=== PATIENT | male | born 1960 | race African-American/Black ===

== ENCOUNTER 2018-01-09 23:37 | Inpatient (IN) | payer OTHER ==
--- NOTE | 2018-01-10 00:18 | HP ---
COWS - Scale Resting Pulse: 0= [place] 80 or Below Sweatin= No chills or Flushing Restless Observation: 3= Extraneous Movement Pupil Size: 0= Normal to Room Light Bone or Joint Aches: 4=Acute Joint/Muscle Pain Runny Nose/ Eye Tearin= Runny Nose/Eyes GI Upset > 30mins: 2= Nausea/Diarrhea Tremor Observation: 1= Tremor [place], Not Seen Yawning Observation: 0= None Anxiety or Irritability: 2=Irritable/Anxious Goose Flesh Skin: 0=Smooth Skin COWS Score: 14 CIWA Score - CIWA Score Nausea/Vomitin-No Nausea/No Vomiting Muscle Tremors: 3 Anxiety: 4-Mod. Anxious/Guarded Agitation: 4-Moderately Restless Paroxysmal Sweats: No Perspiration Orientation: 1-Uncertain about Date Tacttile Disturbances: 0-None Auditory Disturbances: 0-None Visual Disturbances: 0-None Headache: 2-Mild CIWA-Ar Total Score: 14 Admission ROS S - HPI Chief Complaint: c/o withdrawal sx's. seeking detox for alcohol and heroin dependence Allergies/Adverse Reactions: Allergies Allergy/AdvReac Type Severity Reaction Status Date / Time No Known Allergies Allergy Verified 01/10/18 00:00 History of Present Illness: 57 Y.O. MALE WITH HX/O ALCOHOLISM AND HEROIN DEPENDENCE HERE FOR DETOX. CLIENT REPORTS THIS HIS FIRST SUBSTANCE ABUSE TXMENT. DENIES ANY SIGNIFICANT PERIOD OF CLEAN TIME. SELF REFERRED. DENIES HX/O SEIZURE, A/V HALLUCINATIONS, SI/HI. REPORTS HX/O 3 DRUG OVERDOSES LAST BEING A MONTH AGO. REPROTS HX/O HTN BUT NOT SURE WHAT MEDICATION DOSE IS 25MG AND HE BELIEVES IT FOR "WATER". HAS NOT TAKEN THE MEDICATION FOR A WHILE Exam Limitations: No Limitations - Ebola screening Have you traveled outside of the country in the last 21 days: No Have you had contact with anyone from an Ebola affected area: No Have you been sick,other than usual withdrawal symptoms: No Do you have a fever: No - Review of Systems Constitutional: Chills, Malaise, Night Sweats, Changes in sleep EENT: reports: Nose Congestion (SUFFERES FROM CHRONIC SINUSITIS), Dental Problems (MISSING TEETH), Other (HALITOSIS) Respiratory: reports: No Symptoms reported Cardiac: reports: No Symptoms Reported GI: reports: Diarrhea : reports: No Symptoms Reported Musculoskeletal: reports: Back Pain Integumentary: reports: No Symptoms Reported Neuro: reports: No Symptoms reported Endocrine: reports: No Symptoms Reported Hematology: reports: No Symptoms Reported Other Systems: Reviewed and Negative Patient History - Patient Medical History Hx Anemia: No Hx Asthma: No Hx Chronic Obstructive Pulmonary Disease (COPD): Yes Hx Cancer: No Hx Cardiac Disorders: No Hx Congestive Heart Failure: No Hx Hypertension: Yes Hx Hypercholesterolemia: No Hx Pacemaker: No HX Cerebrovascular Accident: No Hx Seizures: No Hx Dementia: No Hx Diabetes: No Hx Gastrointestinal Disorders: No Hx Liver Disease: No Hx Genitourinary Disorders: No Hx Sexually Transmitted Disorders: No Hx Renal Disease (ESRD): No Hx Thyroid Disease: No Hx Human Immunodeficiency Virus (HIV): No Hx Hepatitis C: No Hx Depression: No Hx Suicide Attempt: No Hx Bipolar Disorder: No Hx Schizophrenia: No Other Medical History: CHRONIC SINUSITIS - Patient Surgical History Past Surgical History: Yes Hx Orthopedic Surgery: Yes (R HAND) Anesthesia Reaction: No - PPD History Previous Implant?: Yes Documented Results: Negative w/o proof Implanted On Prior [facility] Admission?: No PPD to be Administered?: Yes - Smoking Cessation Smoking history: Current every day smoker Have you smoked in the past 12 months: Yes Aproximately how many cigarettes per day: 10 Cigars Per Day: 0 Hx Chewing Tobacco Use: No Initiated information on smoking cessation: Yes 'Breaking Loose' booklet given: 01/10/18 - Substance & Tx. History Hx Alcohol Use: Yes Hx Substance Use: Yes Substance Use Type: Alcohol, Heroin Hx Substance Use Treatment: No - Substances Abused HEROINE Route: Inhalation Frequency: Daily Amount used: 6 BAGS Age of first use: 31 Date of Last Use: 01/09/18 VODKA/BEER Route: Oral Frequency: Daily Amount used: 1PINT/6-CANS 16OZ Age of first use: 15 Date of Last Use: 01/09/18 CCOCAINE Route: Smoking Frequency: Daily Amount used: "ALOT" Age of first use: 19 Date of Last Use: 01/08/18 Family Disease History - Family Disease History Family History: Denies Admission Physical Exam BHS - Physical General Appearance: Yes: Appropriately Dressed, Alcohol on Breath, Tremorous ( FELT), Anxious, Other (HALITOSIS) HEENTM: Yes: EOMI, Normal ENT Inspection, Normocephalic, Normal Voice, LESLIE, Pharynx Normal, Nasal Congestion (CHRONIC SINUSITIS), Other (MISSING TEETH) Respiratory: Yes: Chest Non-Tender, Lungs Clear, Normal Breath Sounds, No Respiratory Distress, No Accessory Muscle Use Neck: Yes: No masses,lesions,Nodules, Supple, Trachea in good position Breast: Yes: Breast Exam Deferred Cardiology: Yes: Regular Rhythm, Regular Rate, S1, S2 Abdominal: Yes: Normal Bowel Sounds, Non Tender, Flat, Soft Genitourinary: Yes: Within Normal Limits Back: Yes: Normal Inspection Musculoskeletal: Yes: full range of Motion, Gait Steady Extremities: Yes: Normal Range of Motion, Non-Tender, Tremors, Swelling (BLE) Neurological: Yes: Alert, Motor Strength 5/5 Integumentary: Yes: Normal Color, Dry, Warm Lymphatic: Yes: Within Normal Limits - Diagnostic (1) HTN (hypertension) Current Visit: Yes Status: Chronic Qualifiers: Hypertension type: essential hypertension Qualified Code(s): I10 - Essential (primary) hypertension (2) COPD (chronic obstructive pulmonary disease) Current Visit: Yes Status: Chronic (3) Nicotine dependence Current Visit: Yes Status: Chronic Qualifiers: Nicotine product type: cigarettes Substance use status: uncomplicated Qualified Code(s): F17.210 - Nicotine dependence, cigarettes, uncomplicated (4) Chronic sinusitis, unspecified Current Visit: Yes Status: Acute (5) Alcohol dependence with uncomplicated withdrawal Current Visit: Yes Status: Acute (6) Opioid dependence with withdrawal Current Visit: Yes Status: Acute Cleared for Admission [facility] - Detox or Rehab [facility] Level of Care: Medically Managed Detox Regimen/Protocol: Methadone/Librium Claeared for Rehab Admission: No [facility] Breath Alcohol Content Breath Alcohol Content: 0.062 Vital Signs - Vital Signs Vital Signs Refused: No Temperature: 98 F Temperature Source: Oral Pulse Rate: 80 Respiratory Rate: 18 Blood Pressure: 156/92 BP Location: Left Arm Blood Pressure Position: Sitting - Height Height: 5 ft 8 in - Weight Weight: 75.296 kg Weight Measurement Method: Standing Scale Body Mass Index (BMI): 25.2 - Bowel Function Bowel Movement: No Urine Drug Screen - Test Device Lot Number: [id number] Expiration Date: 09/20/19 - Control Is Test Valid: Yes - Results Drug Screen Negative: No Urine Drug Screen Results: FIFI-Cocaine, OPI-Opiates, PCP-Phencyclidine
[2018-01-10 00:31] VITALS: BMI 25.2
[2018-01-10] MEDS ORDERED: IBUPROFEN 400 MG TABLET (FP) PO PRN (01:42)
[2018-01-10] MEDS ORDERED: LOPERAMIDE HCL 2 MG CAPSULE PO PRN (01:42)
[2018-01-10] MEDS ORDERED: chlordiazePOXIDE HCL 25 MG CAPSULE PO PRN (01:42)
[2018-01-10] MEDS ORDERED: NICOTINE POLACRILEX 2 MG GUM BC PRN (01:42)
[2018-01-10] MEDS ORDERED: guaiFENesin/D-METHORPHAN HB 10 ML UNIT-DOSE CUPS PO PRN (01:42)
[2018-01-10] MEDS ORDERED: MAGNESIUM HYDROX 2400MG/30ML ORAL SUSPENSION 30 ML CUP PO PRN (01:42)
[2018-01-10] MEDS ORDERED: MAG HYDROX/AL HYDROX/SIMETH 30 ML UNIT-DOSE CUP PO PRN (01:42)
[2018-01-10] MEDS ORDERED: METHADONE HCL 10 MG TABLET (FOR DETOX USE ONLY) PO ONE ×3 (01:42→22:00)
[2018-01-10] MEDS ORDERED: MENTHOL/PHENOL 1 EACH UD MM PRN (01:42)
[2018-01-10] MEDS ORDERED: MAGNESIUM CITRATE 300 ML BOTTLE PO PRN (01:42)
[2018-01-10] MEDS ORDERED: ACETAMINOPHEN 325 MG TABLET (FP) PO PRN (01:42)
[2018-01-10] MEDS: chlordiazePOXIDE HCL 25 MG CAPSULE PO SCH ×4 (05:38→22:11)
[2018-01-10] MEDS: P-EPHED 60MG/TRIPROLIDI 2.5MG TABLET PO PRN (05:44)
[2018-01-10] MEDS: cloNIDine HCL 0.1 MG TABLET PO PRN ×2 (07:18→15:06)
[2018-01-10] MEDS: PRENATAL VITAMINS W/ FOLIC ACID TABLET (FP) PO SCH (10:35)
[2018-01-10] MEDS: amLODIPine BESYLATE 10 MG TABLET (FP) PO SCH (10:37)
[2018-01-10] MEDS: NICOTINE 21 MG/24 HOURS TOPICAL PATCH TD SCH (10:39)
--- NOTE | 2018-01-10 10:40 | CONSULT ---
[facility] Psychiatric Consult - Data Date of interview: 01/10/18 Admission source: [facility] Identifying data: This is 57 years old male, single father of eight, homeless, on SSI, with no psychiatric hospitalization history, with history of Alcohol, Heroin and Cannabis depedndenve, reports Alcohol withdrawal symptoms and seeking for detox. Substance Abuse History: Urine Drug Screen Results: FIFI-Cocaine, OPI-Opiates, PCP-Phencyclidine. Smoking history: Current every day smoker. Have you smoked in the past 12 months: Yes. Aproximately how many cigarettes per day: 10. Cigars Per Day: 0. Hx Chewing Tobacco Use: No. Initiated information on smoking cessation: Yes. 'Breaking Loose' booklet given: 01/10/18. - Substance & Tx. History. Hx Alcohol Use: Yes. Hx Substance Use: Yes. Substance Use Type : Alcohol, Heroin. Hx Substance Use Treatment: No. - Substances Abused. HEROINE. Route: Inhalation. Frequency: Daily. Amount used: 6 BAGS. Age of first use: 31. Date of Last Use: 01/09/18. VODKA/BEER. Route: Oral. Frequency: Daily. Amount used: 1PINT/6-CANS 16OZ. Age of first use: 15. Date of Last Use: 01/09/18. CCOCAINE. Route: Smoking. Frequency: Daily. Amount used: "ALOT". Age of first use: 19. Date of Last Use: 01/08/18 Medical History: COPD, HTN, Psychiatric History: JUICE YUN UNCLEAR PAST PSYCHIATRIC HISTORY WITH NO PSYCHIATRIC HOSPITALIZATIONS BUT WITH HISTORY OF THREE SUICIADAL ATTEMPTS BY od WITH MEDICATIONS, REPORTS NO MEDICATIONS TAKING PRIOR TO THIS ADMISSION, Physical/Sexual Abuse/Trauma History: Denies Additional Comment: Urine Drug Screen Results: FIFI-Cocaine, OPI-Opiates, PCP- Phencyclidine. Observation. Detox Unit Care Protocol Mental Status Exam - Mental Status Exam Alert and Oriented to: Person Cognitive Function: Fair Patient Appearance: Unkempt Mood: Sad Affect: Flat Patient Behavior: Sedated Speech Pattern: Delayed Voice Loudness: Mildly Soft/Quiet Thought Process: Circumstantial Thought Disorder: Being Controlled Hallucinations: Denies Suicidal Ideation: Denies Homicidal Ideation: Denies Insight/Judgement: Fair Sleep: Difficulty falling asleep Appetite: Weight gain Muscle strength/Tone: Mild Hypotonicity Gait/Station: Shuffling Additional Comments: Observation. Detox Unit Care Protocol Psychiatric Findings - Problem List ([place] 1, 2,3) (1) Cocaine abuse Current Visit: Yes Status: Acute (2) PCP (phencyclidine) abuse Current Visit: Yes Status: Acute (3) Alcohol-induced mood disorder Current Visit: Yes Status: Acute (4) Alcohol dependence with uncomplicated withdrawal Current Visit: Yes Status: Acute (5) Opioid dependence with withdrawal Current Visit: Yes Status: Acute (6) Nicotine dependence Current Visit: Yes Status: Chronic Qualifiers: Nicotine product type: cigarettes Substance use status: uncomplicated Qualified Code(s): F17.210 - Nicotine dependence, cigarettes, uncomplicated - Initial Treatment Plan Initial Treatment Plan: Observation. Detox Unit Care Protocol
[2018-01-10] MEDS ORDERED: valACYclovir HCL 500 MG TABLET (FP) PO SCH (10:45)
--- NOTE | 2018-01-10 10:47 | EKG ---
Test Reason : Blood Pressure : / mmHG Vent. Rate : 073 BPM Atrial Rate : 073 BPM P-R Int : 114 ms QRS Dur : 086 ms QT Int : 404 ms P-R-T Axes : 000 000 115 degrees QTc Int : 445 ms NORMAL SINUS RHYTHM POSSIBLE LATERAL INFARCT , AGE UNDETERMINED ABNORMAL ECG NO PREVIOUS ECGS AVAILABLE Confirmed by JANNA MALDONADO MD ([id number]) on 01/10/2018 10:46:42 AM Referred By: Confirmed By:JANNA MALDONADO MD
--- NOTE | 2018-01-10 10:52 | PN ---
S CIWA - CIWA Score Nausea/Vomitin-Mild Nausea/No Vomiting Muscle Tremors: 4-Moderate,w/Arms Extend Anxiety: 3 Agitation: 3 Paroxysmal Sweats: 1-Minimal Palms Moist Orientation: 0-Oriented Tacttile Disturbances: 0-None Auditory Disturbances: 0-None Visual Disturbances: 0-None Headache: 1-Very Mild CIWA-Ar Total Score: 13 BHS COWS - Scale Resting Pulse: 1= [place] 81-100 Sweatin= Chills/Flushing Restless Observation: 1= Difficult to Sit Still Pupil Size: 0= Normal to Room Light Bone or Joint Aches: 2= Severe Diffuse Aches Runny Nose/ Eye Tearin= Nasal Congestion GI Upset > 30mins: 2= Nausea/Diarrhea Tremor Observation of Outstretched Hands: 2= Slight Tremor Visible Yawning Observation: 1= 1-2x During Session Anxiety or Irritability: 2=Irritable/Anxious Goose Flesh Skin: 0=Smooth Skin COWS Score: 13 BHS Progress Note (SOAP) Subjective: joints pain body ache trouble sleep at night irritable restlessness sweat tremor stated has hypertension x "years" taking unknown name medications, not remember last dose of antihypertensants Objective: 01/10/18 10:49 Vital Signs Temperature 97.9 F 01/10/18 09:20 Pulse Rate 84 01/10/18 09:20 Respiratory Rate 18 01/10/18 09:20 Blood Pressure 182/107 01/10/18 09:20 O2 Sat by Pulse Oximetry (%) lab not available at this time Assessment: 01/10/18 10:49 withdrawal sx hypertension Plan: continue detox begin amlodopine patient received tolerated well denies dizziness begin lisinopril 10 mg po bid
[2018-01-10 11:15] LABS: HEMATOCRIT 38.2 % (35.4-49); HEMOGLOBIN 12.4 GM/dL (11.7-16.9); MCH 31.2 pg (25.7-33.7); MCHC 32.6 g/dl (32.0-35.9); MEAN CELL VOLUME 95.7 fl (80-96); MEAN PLT VOLUME 8.6 fl (7.5-11.1); PLATELET COUNT 234 K/MM3 (134-434); RBC 3.99 M/mm3 (4.00-5.60); RDW 13.7 % (11.9-15.9); WHITE BLOOD COUNT 6.1 K/mm3 (4.0-10.0)
[2018-01-10 11:32] LABS: ALBUMIN 3.1 g/dl (3.4-5.0); ALK PHOS 92 U/L (45-117); ANION GAP 5 (8-16); BILIRUBIN,TOTAL 0.5 mg/dL (0.2-1.0); BLOOD UREA NITROGEN 11 mg/dL (7-18); CALCIUM 8.5 mg/dL (8.5-10.1); CHLORIDE 107 mmol/L (98-107); CO2 29 mmol/L (21-32); CREATININE 1.1 mg/dL (0.7-1.3); GLUCOSE,RANDOM 89 mg/dL (74-106); POTASSIUM 4.2 mmol/L (3.5-5.1); SGOT/AST 22 U/L (15-37); SGPT/ALT 23 U/L (12-78); SODIUM 141 mmol/L (136-145); TOT PROT 6.6 g/dl (6.4-8.2)
[2018-01-10] MEDS ORDERED: LISINOPRIL 10 MG TABLET (FP) PO SCH (22:00)
[2018-01-10] MEDS ORDERED: MELATONIN 5 MG TABLETS PO PRN (22:00)
[2018-01-10] MEDS: THIAMINE HCL 100 MG TABLET (FP) PO SCH (22:11)
[2018-01-10] MEDS: LISINOPRIL 10 MG TABLET (FP) PO SCH (22:11)
[2018-01-11] MEDS: cloNIDine HCL 0.1 MG TABLET PO PRN (05:33)
[2018-01-11] MEDS: chlordiazePOXIDE HCL 25 MG CAPSULE PO SCH ×4 (05:33→22:18)
[2018-01-11] MEDS: P-EPHED 60MG/TRIPROLIDI 2.5MG TABLET PO PRN (05:36)
[2018-01-11 09:56] LABS: URINE APPEARANCE CLEAR; URINE BILIRUBIN NEGATIVE (<2.0 mg/dL); URINE COLOR LTYELLOW; URINE GLUCOSE (UA) NEGATIVE (NEGATIVE); URINE KETONE NEGATIVE (NEGATIVE); URINE LEUK ESTERASE NEGATIVE (NEGATIVE); URINE NITRITE NEGATIVE (NEGATIVE); URINE PROTEIN NEGATIVE (NEGATIVE); URINE UROBILINOGEN NEGATIVE mg/dL (0.2-1.0)
[2018-01-11] MEDS ORDERED: METHADONE HCL 10 MG TABLET (FOR DETOX USE ONLY) PO SCH (10:00)
--- NOTE | 2018-01-11 10:02 | PN ---
S CIWA - CIWA Score Nausea/Vomitin-No Nausea/No Vomiting Muscle Tremors: 3 Anxiety: 3 Agitation: 3 Paroxysmal Sweats: 1-Minimal Palms Moist Orientation: 0-Oriented Tacttile Disturbances: 1-Very Mild Itch/Numbness Auditory Disturbances: 0-None Visual Disturbances: 0-None Headache: 1-Very Mild CIWA-Ar Total Score: 12 BHS COWS - Scale Resting Pulse: 0= [place] 80 or Below Sweatin= Chills/Flushing Restless Observation: 1= Difficult to Sit Still Pupil Size: 0= Normal to Room Light Bone or Joint Aches: 2= Severe Diffuse Aches Runny Nose/ Eye Tearin= Nasal Congestion GI Upset > 30mins: 1= Stomach Cramp Tremor Observation of Outstretched Hands: 2= Slight Tremor Visible Yawning Observation: 2= >3x During Session Anxiety or Irritability: 2=Irritable/Anxious Goose Flesh Skin: 0=Smooth Skin COWS Score: 12 S Progress Note (SOAP) Subjective: joints pain body ache sweat tremor irritable low energy Objective: 01/11/18 10:03 Vital Signs Temperature 97.9 F 01/11/18 06:34 Pulse Rate 56 L 01/11/18 07:51 Respiratory Rate 18 01/11/18 07:51 Blood Pressure 135/75 01/11/18 07:51 O2 Sat by Pulse Oximetry (%) Laboratory Last Values WBC 6.1 K/mm3 (4.0-10.0) 01/10/18 07:00 RBC 3.99 M/mm3 (4.00-5.60) L 01/10/18 07:00 Hgb 12.4 GM/dL (11.7-16.9) 01/10/18 07:00 Hct 38.2 % (35.4-49) 01/10/18 07:00 MCV 95.7 fl (80-96) 01/10/18 07:00 MCH 31.2 pg (25.7-33.7) 01/10/18 07:00 MCHC 32.6 g/dl (32.0-35.9) 01/10/18 07:00 RDW 13.7 % (11.9-15.9) 01/10/18 07:00 Plt Count 234 K/MM3 (134-434) 01/10/18 07:00 MPV 8.6 fl (7.5-11.1) 01/10/18 07:00 Sodium 141 mmol/L (136-145) 01/10/18 07:00 Potassium 4.2 mmol/L (3.5-5.1) 01/10/18 07:00 Chloride 107 mmol/L (98-107) 01/10/18 07:00 Carbon Dioxide 29 mmol/L (21-32) 01/10/18 07:00 Anion Gap 5 (8-16) L 01/10/18 07:00 BUN 11 mg/dL (7-18) 01/10/18 07:00 Creatinine 1.1 mg/dL (0.7-1.3) 01/10/18 07:00 Creat Clearance w eGFR > 60 (>60) 01/10/18 07:00 Random Glucose 89 mg/dL (74-106) 01/10/18 07:00 Calcium 8.5 mg/dL (8.5-10.1) 01/10/18 07:00 Total Bilirubin 0.5 mg/dL (0.2-1.0) 01/10/18 07:00 AST 22 U/L (15-37) 01/10/18 07:00 ALT 23 U/L (12-78) 01/10/18 07:00 Alkaline Phosphatase 92 U/L (45-117) 01/10/18 07:00 Total Protein 6.6 g/dl (6.4-8.2) 01/10/18 07:00 Albumin 3.1 g/dl (3.4-5.0) L 01/10/18 07:00 RPR Titer Nonreactive (NONREACTIVE) 01/10/18 07:00 lab noted Assessment: 01/11/18 10:04 alcohol and opiate withdrawal sx Plan: continue detox
[2018-01-11] MEDS: LISINOPRIL 10 MG TABLET (FP) PO SCH ×2 (10:58→22:18)
[2018-01-11] MEDS: amLODIPine BESYLATE 10 MG TABLET (FP) PO SCH (10:58)
[2018-01-11] MEDS: NICOTINE 21 MG/24 HOURS TOPICAL PATCH TD SCH (10:59)
[2018-01-11] MEDS: PRENATAL VITAMINS W/ FOLIC ACID TABLET (FP) PO SCH (10:59)
[2018-01-11] MEDS: HYDROCHLOROTHIAZIDE 25 MG TABLET (FP) PO SCH (11:01)
[2018-01-11] MEDS: THIAMINE HCL 100 MG TABLET (FP) PO SCH (22:19)
[2018-01-12] MEDS: chlordiazePOXIDE 5 MG CAPSULE PO SCH ×4 (05:36→22:38)
[2018-01-12] MEDS: P-EPHED 60MG/TRIPROLIDI 2.5MG TABLET PO PRN (05:38)
--- NOTE | 2018-01-12 11:14 | PN ---
BHS Progress Note (SOAP) Subjective: ANXIETY,SWEATS,FATIGUE. Objective: 01/12/18 11:13 Vital Signs 01/12/18 01/12/18 01/12/18 03:30 06:00 10:00 Temperature 97.7 F 98.2 F Pulse Rate 68 73 Respiratory 18 18 18 Rate Blood Pressure 154/77 132/86 Laboratory Tests 01/10/18 01/10/18 01/10/18 07:00 07:00 07:00 WBC 6.1 RBC 3.99 L Hgb 12.4 Hct 38.2 MCV 95.7 MCH 31.2 MCHC 32.6 RDW 13.7 Plt Count 234 MPV 8.6 Sodium 141 Potassium 4.2 Chloride 107 Carbon Dioxide 29 Anion Gap 5 L BUN 11 Creatinine 1.1 Creat Clearance w eGFR > 60 Random Glucose 89 Calcium 8.5 Total Bilirubin 0.5 AST 22 ALT 23 Alkaline Phosphatase 92 Total Protein 6.6 Albumin 3.1 L Urine Color Urine Appearance Urine pH Ur Specific [place] Urine Protein Urine Glucose (UA) Urine Ketones Urine Blood Urine Nitrite Urine Bilirubin Urine Urobilinogen Ur Leukocyte Esterase RPR Titer Nonreactive 01/11/18 08:00 WBC RBC Hgb Hct MCV MCH MCHC RDW Plt Count MPV Sodium Potassium Chloride Carbon Dioxide Anion Gap BUN Creatinine Creat Clearance w eGFR Random Glucose Calcium Total Bilirubin AST ALT Alkaline Phosphatase Total Protein Albumin Urine Color Ltyellow Urine Appearance Clear Urine pH 6.0 Ur Specific [place] 1.016 Urine Protein Negative Urine Glucose (UA) Negative Urine Ketones Negative Urine Blood Negative Urine Nitrite Negative Urine Bilirubin Negative Urine Urobilinogen Negative Ur Leukocyte Esterase Negative RPR Titer Assessment: 01/12/18 11:14 WITHDRAWAL SX Plan: CONTINUE DETOX
[2018-01-12] MEDS: METHADONE HCL 5 MG TABLET (FOR DETOX USE ONLY) PO SCH (11:44)
[2018-01-12] MEDS: HYDROCHLOROTHIAZIDE 25 MG TABLET (FP) PO SCH (11:44)
[2018-01-12] MEDS: NICOTINE 21 MG/24 HOURS TOPICAL PATCH TD SCH (11:45)
[2018-01-12] MEDS: amLODIPine BESYLATE 10 MG TABLET (FP) PO SCH (11:45)
[2018-01-12] MEDS: LISINOPRIL 10 MG TABLET (FP) PO SCH ×2 (11:45→22:38)
[2018-01-12] MEDS: PRENATAL VITAMINS W/ FOLIC ACID TABLET (FP) PO SCH (11:46)
[2018-01-12] MEDS: THIAMINE HCL 100 MG TABLET (FP) PO SCH (22:37)
[2018-01-13] MEDS: chlordiazePOXIDE HCL 10 MG CAPSULE PO SCH ×4 (05:42→22:41)
[2018-01-13] MEDS: LISINOPRIL 10 MG TABLET (FP) PO SCH ×2 (10:28→22:41)
[2018-01-13] MEDS: METHADONE HCL 5 MG TABLET (FOR DETOX USE ONLY) PO SCH (10:28)
[2018-01-13] MEDS: HYDROCHLOROTHIAZIDE 25 MG TABLET (FP) PO SCH (10:28)
[2018-01-13] MEDS: amLODIPine BESYLATE 10 MG TABLET (FP) PO SCH (10:29)
[2018-01-13] MEDS: PRENATAL VITAMINS W/ FOLIC ACID TABLET (FP) PO SCH (10:29)
[2018-01-13] MEDS: cloNIDine HCL 0.1 MG TABLET PO PRN ×2 (10:29→22:41)
[2018-01-13] MEDS: NICOTINE 21 MG/24 HOURS TOPICAL PATCH TD SCH (10:29)
--- NOTE | 2018-01-13 12:36 | PN ---
S Progress Note (SOAP) Subjective: Tremors, irritability and generalized weakness Objective: 01/13/18 12:35 Vital Signs 01/13/18 01/13/18 06:47 10:41 Temperature 97.9 F 95.7 F L Pulse Rate 76 18 L Respiratory 20 134 H Rate Blood Pressure 147/87 147/87 Laboratory Last Values WBC 6.1 K/mm3 (4.0-10.0) 01/10/18 07:00 RBC 3.99 M/mm3 (4.00-5.60) L 01/10/18 07:00 Hgb 12.4 GM/dL (11.7-16.9) 01/10/18 07:00 Hct 38.2 % (35.4-49) 01/10/18 07:00 MCV 95.7 fl (80-96) 01/10/18 07:00 MCH 31.2 pg (25.7-33.7) 01/10/18 07:00 MCHC 32.6 g/dl (32.0-35.9) 01/10/18 07:00 RDW 13.7 % (11.9-15.9) 01/10/18 07:00 Plt Count 234 K/MM3 (134-434) 01/10/18 07:00 MPV 8.6 fl (7.5-11.1) 01/10/18 07:00 Sodium 141 mmol/L (136-145) 01/10/18 07:00 Potassium 4.2 mmol/L (3.5-5.1) 01/10/18 07:00 Chloride 107 mmol/L (98-107) 01/10/18 07:00 Carbon Dioxide 29 mmol/L (21-32) 01/10/18 07:00 Anion Gap 5 (8-16) L 01/10/18 07:00 BUN 11 mg/dL (7-18) 01/10/18 07:00 Creatinine 1.1 mg/dL (0.7-1.3) 01/10/18 07:00 Creat Clearance w eGFR > 60 (>60) 01/10/18 07:00 Random Glucose 89 mg/dL (74-106) 01/10/18 07:00 Calcium 8.5 mg/dL (8.5-10.1) 01/10/18 07:00 Total Bilirubin 0.5 mg/dL (0.2-1.0) 01/10/18 07:00 AST 22 U/L (15-37) 01/10/18 07:00 ALT 23 U/L (12-78) 01/10/18 07:00 Alkaline Phosphatase 92 U/L (45-117) 01/10/18 07:00 Total Protein 6.6 g/dl (6.4-8.2) 01/10/18 07:00 Albumin 3.1 g/dl (3.4-5.0) L 01/10/18 07:00 Urine Color Ltyellow 01/11/18 08:00 Urine Appearance Clear 01/11/18 08:00 Urine pH 6.0 (5.0-8.0) 01/11/18 08:00 Ur Specific [place] 1.016 (1.001-1.035) 01/11/18 08:00 Urine Protein Negative (NEGATIVE) 01/11/18 08:00 Urine Glucose (UA) Negative (NEGATIVE) 01/11/18 08:00 Urine Ketones Negative (NEGATIVE) 01/11/18 08:00 Urine Blood Negative (NEGATIVE) 01/11/18 08:00 Urine Nitrite Negative (NEGATIVE) 01/11/18 08:00 Urine Bilirubin Negative (<2.0 mg/dL) 01/11/18 08:00 Urine Urobilinogen Negative mg/dL (0.2-1.0) 01/11/18 08:00 Ur Leukocyte Esterase Negative (NEGATIVE) 01/11/18 08:00 RPR Titer Nonreactive (NONREACTIVE) 01/10/18 07:00 Labs noted Assessment: 01/13/18 12:35 Withdrawal sx Plan: Continue detox
[2018-01-13] MEDS: THIAMINE HCL 100 MG TABLET (FP) PO SCH (22:41)
[2018-01-14] MEDS ORDERED: METHADONE HCL 10 MG TABLET (FOR DETOX USE ONLY) PO SCH (10:00)
[2018-01-14] MEDS: amLODIPine BESYLATE 10 MG TABLET (FP) PO SCH (10:19)
[2018-01-14] MEDS: HYDROCHLOROTHIAZIDE 25 MG TABLET (FP) PO SCH (10:19)
[2018-01-14] MEDS: PRENATAL VITAMINS W/ FOLIC ACID TABLET (FP) PO SCH (10:19)
[2018-01-14] MEDS: LISINOPRIL 10 MG TABLET (FP) PO SCH (10:20)
[2018-01-14] MEDS: NICOTINE 21 MG/24 HOURS TOPICAL PATCH TD SCH (10:21)
--- NOTE | 2018-01-14 13:03 | PN ---
BHS Progress Note (SOAP) Subjective: FEELING BETTER NO TREMOR NO BODY ACHE LESS SWEAT SLEEP BETTER AT NIGHT SOCIAL WITH PEERS IN DAY ROOM Objective: 01/14/18 13:02 Vital Signs Temperature 97.9 F 01/14/18 10:25 Pulse Rate 73 01/14/18 10:25 Respiratory Rate 20 01/14/18 10:25 Blood Pressure 135/91 01/14/18 10:25 O2 Sat by Pulse Oximetry (%) Laboratory Last Values WBC 6.1 K/mm3 (4.0-10.0) 01/10/18 07:00 RBC 3.99 M/mm3 (4.00-5.60) L 01/10/18 07:00 Hgb 12.4 GM/dL (11.7-16.9) 01/10/18 07:00 Hct 38.2 % (35.4-49) 01/10/18 07:00 MCV 95.7 fl (80-96) 01/10/18 07:00 MCH 31.2 pg (25.7-33.7) 01/10/18 07:00 MCHC 32.6 g/dl (32.0-35.9) 01/10/18 07:00 RDW 13.7 % (11.9-15.9) 01/10/18 07:00 Plt Count 234 K/MM3 (134-434) 01/10/18 07:00 MPV 8.6 fl (7.5-11.1) 01/10/18 07:00 Sodium 141 mmol/L (136-145) 01/10/18 07:00 Potassium 4.2 mmol/L (3.5-5.1) 01/10/18 07:00 Chloride 107 mmol/L (98-107) 01/10/18 07:00 Carbon Dioxide 29 mmol/L (21-32) 01/10/18 07:00 Anion Gap 5 (8-16) L 01/10/18 07:00 BUN 11 mg/dL (7-18) 01/10/18 07:00 Creatinine 1.1 mg/dL (0.7-1.3) 01/10/18 07:00 Creat Clearance w eGFR > 60 (>60) 01/10/18 07:00 Random Glucose 89 mg/dL (74-106) 01/10/18 07:00 Calcium 8.5 mg/dL (8.5-10.1) 01/10/18 07:00 Total Bilirubin 0.5 mg/dL (0.2-1.0) 01/10/18 07:00 AST 22 U/L (15-37) 01/10/18 07:00 ALT 23 U/L (12-78) 01/10/18 07:00 Alkaline Phosphatase 92 U/L (45-117) 01/10/18 07:00 Total Protein 6.6 g/dl (6.4-8.2) 01/10/18 07:00 Albumin 3.1 g/dl (3.4-5.0) L 01/10/18 07:00 Urine Color Ltyellow 01/11/18 08:00 Urine Appearance Clear 01/11/18 08:00 Urine pH 6.0 (5.0-8.0) 01/11/18 08:00 Ur Specific [place] 1.016 (1.001-1.035) 01/11/18 08:00 Urine Protein Negative (NEGATIVE) 01/11/18 08:00 Urine Glucose (UA) Negative (NEGATIVE) 01/11/18 08:00 Urine Ketones Negative (NEGATIVE) 01/11/18 08:00 Urine Blood Negative (NEGATIVE) 01/11/18 08:00 Urine Nitrite Negative (NEGATIVE) 01/11/18 08:00 Urine Bilirubin Negative (<2.0 mg/dL) 01/11/18 08:00 Urine Urobilinogen Negative mg/dL (0.2-1.0) 01/11/18 08:00 Ur Leukocyte Esterase Negative (NEGATIVE) 01/11/18 08:00 RPR Titer Nonreactive (NONREACTIVE) 01/10/18 07:00 LAB NOTED Assessment: 01/14/18 13:02 MILD WITHDRAWAL SX HYPERTENSION Plan: MEDICALLY SUPERVISED DETOX DISCUSS RISKS OF UNCONTROLLED BP ELEVATION
[2018-01-15] MEDS ORDERED: METHADONE HCL 5 MG TABLET (FOR DETOX USE ONLY) PO SCH (06:00)
[2018-01-15] MEDS: LISINOPRIL 10 MG TABLET (FP) PO SCH (08:30)
[2018-01-15] MEDS: THIAMINE HCL 100 MG TABLET (FP) PO SCH (08:30)
[2018-01-15 08:35] VITALS: BP 141/63; PULSE 73; TEMP 97.7
--- NOTE | 2018-01-15 09:38 | DS ---
[facility] Detox Discharge Summary Admission Date: 01/10/18 Discharge Date: 01/15/18 - History Present History: Alcohol Dependence, Opioid Dependence Additional Comments: 37 years old male admitted 01/10/18 for alcohol and opiate withdrawal sx completed alcohol and opiate detox regimen tolerated well denies alcohol and opiate withdrawal sx alert oriented x 3 no acute distress aftercare revelation patient reject the arrangement wants to "go home" strong recommend community support self management - Physical Exam Results Vital Signs: Vital Signs Temperature 97.7 F 01/15/18 08:34 Pulse Rate 73 01/15/18 08:34 Respiratory Rate 20 01/15/18 08:34 Blood Pressure 141/63 01/15/18 08:34 O2 Sat by Pulse Oximetry (%) Pertinent Admission Physical Exam Findings: alcohol and opiate withdrawal sx Vital Signs Temperature 97.7 F 01/15/18 08:34 Pulse Rate 73 01/15/18 08:34 Respiratory Rate 20 01/15/18 08:34 Blood Pressure 141/63 01/15/18 08:34 O2 Sat by Pulse Oximetry (%) Laboratory Last Values WBC 6.1 K/mm3 (4.0-10.0) 01/10/18 07:00 RBC 3.99 M/mm3 (4.00-5.60) L 01/10/18 07:00 Hgb 12.4 GM/dL (11.7-16.9) 01/10/18 07:00 Hct 38.2 % (35.4-49) 01/10/18 07:00 MCV 95.7 fl (80-96) 01/10/18 07:00 MCH 31.2 pg (25.7-33.7) 01/10/18 07:00 MCHC 32.6 g/dl (32.0-35.9) 01/10/18 07:00 RDW 13.7 % (11.9-15.9) 01/10/18 07:00 Plt Count 234 K/MM3 (134-434) 01/10/18 07:00 MPV 8.6 fl (7.5-11.1) 01/10/18 07:00 Sodium 141 mmol/L (136-145) 01/10/18 07:00 Potassium 4.2 mmol/L (3.5-5.1) 01/10/18 07:00 Chloride 107 mmol/L (98-107) 01/10/18 07:00 Carbon Dioxide 29 mmol/L (21-32) 01/10/18 07:00 Anion Gap 5 (8-16) L 01/10/18 07:00 BUN 11 mg/dL (7-18) 01/10/18 07:00 Creatinine 1.1 mg/dL (0.7-1.3) 01/10/18 07:00 Creat Clearance w eGFR > 60 (>60) 01/10/18 07:00 Random Glucose 89 mg/dL (74-106) 01/10/18 07:00 Calcium 8.5 mg/dL (8.5-10.1) 01/10/18 07:00 Total Bilirubin 0.5 mg/dL (0.2-1.0) 01/10/18 07:00 AST 22 U/L (15-37) 01/10/18 07:00 ALT 23 U/L (12-78) 01/10/18 07:00 Alkaline Phosphatase 92 U/L (45-117) 01/10/18 07:00 Total Protein 6.6 g/dl (6.4-8.2) 01/10/18 07:00 Albumin 3.1 g/dl (3.4-5.0) L 01/10/18 07:00 Urine Color Ltyellow 01/11/18 08:00 Urine Appearance Clear 01/11/18 08:00 Urine pH 6.0 (5.0-8.0) 01/11/18 08:00 Ur Specific [place] 1.016 (1.001-1.035) 01/11/18 08:00 Urine Protein Negative (NEGATIVE) 01/11/18 08:00 Urine Glucose (UA) Negative (NEGATIVE) 01/11/18 08:00 Urine Ketones Negative (NEGATIVE) 01/11/18 08:00 Urine Blood Negative (NEGATIVE) 01/11/18 08:00 Urine Nitrite Negative (NEGATIVE) 01/11/18 08:00 Urine Bilirubin Negative (<2.0 mg/dL) 01/11/18 08:00 Urine Urobilinogen Negative mg/dL (0.2-1.0) 01/11/18 08:00 Ur Leukocyte Esterase Negative (NEGATIVE) 01/11/18 08:00 RPR Titer Nonreactive (NONREACTIVE) 01/10/18 07:00 lab noted - Treatment Hospital Course: Detox Protocol Followed, Detoxed Safely, Responded well, Discharged Condition Good, Rehab Referral Accepted Patient has Accepted a Rehab Referral to: [facility] / community self support meeting - Medication Discharge Medications: Ambulatory Orders Amlodipine Besylate [Norvasc -] 10 mg PO DAILY #30 tablet 01/14/18 Hydrochlorothiazide [Hctz -] 25 mg PO DAILY #30 tablet 01/14/18 Lisinopril [Prinivil] 10 mg PO BID #60 tablet 01/14/18 - Diagnosis (1) Alcohol dependence with uncomplicated withdrawal Current Visit: Yes Status: Acute (2) Nicotine dependence Current Visit: Yes Status: Acute Qualifiers: Nicotine product type: cigarettes Substance use status: in withdrawal Qualified Code(s): F17.213 - Nicotine dependence, cigarettes, with withdrawal (3) Opioid dependence with withdrawal Current Visit: Yes Status: Acute (4) COPD (chronic obstructive pulmonary disease) Current Visit: Yes Status: Chronic Qualifiers: Chronic bronchitis type: unspecified (5) HTN (hypertension) Current Visit: Yes Status: Chronic Qualifiers: Hypertension type: essential hypertension Qualified Code(s): I10 - Essential (primary) hypertension - AMA Did Patient Leave Against Medical Advice: No
== END 2018-01-15 11:13 | disposition home or self-care (01) | DRG 773 ==
LOC: YASAS 23:37 → Y6N 01-10 00:08
PROVIDERS: ADMIT Family Medicine Addiction Medicine; ATTEND Family Medicine Addiction Medicine
PROC: HZ2ZZZZ Detoxification Services for Substance Abuse Treatment (ICD-10-PCS; principal; 2018-01-10)
DX: F11.23 Opioid dependence with withdrawal (principal); F10.230 Alcohol dependence with withdrawal, uncomplicated; F16.10 Hallucinogen abuse, uncomplicated; F17.213 Nicotine dependence, cigarettes, with withdrawal; F10.24 Alcohol dependence with alcohol-induced mood disorder; I10 Essential (primary) hypertension; J44.9 Chronic obstructive pulmonary disease, unspecified; J32.9 Chronic sinusitis, unspecified; Z91.5 Personal history of self-harm
CPT/HCPCS: 36415; 80053; 81003; 85027; 86593; 93005; 93010; J0735

== ENCOUNTER 2018-02-11 02:27 | Inpatient (IN) | payer OTHER ==
--- NOTE | 2018-02-11 03:41 | PDOC ---
History of Present Illness - General Chief Complaint: Blood Pressure Problem Stated Complaint: HYPERTENSION Time Seen by Provider: 02/11/18 03:39 History Source: Patient Exam Limitations: No Limitations - History of Present Illness Initial Comments: 02/11/18 03:53 Best Contact: PCP: None Pmhx: HTN Pshx: N/A Allergies:NKDA FH:0 Social Hx: Cigarettes/ 6 cigarettes/d/10years Alcohol/ 0 Drugs/ Heroin LMP:N/A Last use today: Heroin 1 grams Last use today: Etoh 57-year-old male presents to the ER with no complaints. Patient states he was at the detox center at [facility] today and was a bit anxious and nervous which causes blood pressure to go up but at no point did he have headaches, dizziness , lightheadedness, nausea/vomiting, fever/chills/diarrhea, facial pains, neck pain/stiffness, back pains, chest pain, shortness of breath, abdominal pains, flank pains, urinary symptoms, extremity numbness or tingling sensation. Patient states he is completely fine. Past History - Past Medical History Allergies/Adverse Reactions: Allergies Allergy/AdvReac Type Severity Reaction Status Date / Time No Known Allergies Allergy Verified 02/11/18 02:57 Home Medications: Ambulatory Orders Amlodipine Besylate [Norvasc -] 10 mg PO DAILY #30 tablet 01/14/18 Hydrochlorothiazide [Hctz -] 25 mg PO DAILY #30 tablet 01/14/18 Lisinopril [Prinivil] 10 mg PO BID #60 tablet 01/14/18 Anemia: No Asthma: No Cancer: No Cardiac Disorders: No CVA: No COPD: Yes (Not on medication) CHF: No Dementia: No Diabetes: No GI Disorders: No Disorders: No HTN: Yes (Not on medication) Hypercholesterolemia: No Liver Disease: No Seizures: No Thyroid Disease: No - Surgical History Orthopedic Surgery: Yes (R HAND) - Suicide/Smoking/Psychosocial Hx Smoking History: Current some day smoker Have you smoked in the past 12 months: Yes Number of Cigarettes Smoked Daily: 10 Cigars Per Day: 0 Information on smoking cessation initiated: No 'Breaking Loose' booklet given: 02/11/18 Hx Alcohol Use: Yes Drug/Substance Use Hx: No Substance Use Type: Alcohol, Heroin Hx Substance Use Treatment: No Review of Systems - Review of Systems Able to Perform ROS?: Yes Comments:: 02/11/18 04:18 CONSTITUTIONAL: Absent: fever, chills, diaphoresis, generalized weakness, malaise, loss of appetite HEENT: Absent: rhinorrhea, nasal congestion, throat pain, throat swelling, difficulty swallowing, mouth swelling, ear pain, eye pain, visual Changes CARDIOVASCULAR: Absent: chest pain, loss of consciousness, palpitations, irregular heart rate, peripheral edema RESPIRATORY: Absent: cough, shortness of breath, dyspnea with exertion, orthopnea, wheezing, stridor, hemoptysis GASTROINTESTINAL: Absent: abdominal pain, abdominal distension, nausea, vomiting, diarrhea, constipation, melena, hematochezia GENITOURINARY: Absent: dysuria, frequency, urgency, hesitancy, hematuria, flank pain, genital pain MUSCULOSKELETAL: Absent: myalgia, arthralgia, joint swelling SKIN: Absent: rash, itching, pallor HEMATOLOGIC/IMMUNOLOGIC: Absent: easy bleeding, easy bruising, lymphadenopathy, frequent infections ENDOCRINE: Absent: unexplained weight gain, unexplained weight loss, heat intolerance, cold intolerance NEUROLOGIC: Absent: headache, focal weakness or paresthesias, dizziness, unsteady gait, seizure, mental status changes, bladder or bowel incontinence PSYCHIATRIC: Absent: anxiety, depression, suicidal or homicidal ideation, hallucinations. Is the patient limited Armenian proficient: No *Physical Exam - Vital Signs Last Vital Signs Temp Pulse Resp BP Pulse Ox 99.8 F H 79 19 148/79 99 02/11/18 02:32 02/11/18 02:32 02/11/18 02:32 02/11/18 02:32 02/11/18 02:32 - Physical Exam Comments: 02/11/18 04:18 GENERAL: Well developed, well nourished. Awake and alert. No acute distress. HEENT: Normocephalic, atraumatic. PERRLA, EOMI. No conjunctival pallor. Sclera are non- icteric. Moist mucous membranes. Oropharynx is clear. NECK: Supple. Full ROM. No JVD. Carotid pulses 2+ and symmetric, without bruits. No thyromegaly. No lymphadenopathy. CARDIOVASCULAR: Regular rate and rhythm. No murmurs, rubs, or gallops. Distal pulses are 2+ and symmetric. PULMONARY: No evidence of respiratory distress. Lungs clear to auscultation bilaterally. No wheezing, rales or rhonchi. ABDOMINAL: Soft. Non-tender. Non-distended. No rebound or guarding. No organomegaly. Normoactive bowel sounds. MUSCULOSKELETAL Normal range of motion at all joints. No bony deformities or tenderness. No CVA tenderness. EXTREMITIES: No cyanosis. No clubbing. No edema. No calf tenderness. SKIN: Warm and dry. Normal capillary refill. No rashes. No jaundice. NEUROLOGICAL: Alert, awake, appropriate. Cranial nerves 2-12 intact. No deficits to light touch and temperature in face, upper extremities and lower extremities. No motor deficits in the in face, upper extremities and lower extremities. Normoreflexic in the upper and lower extremities. Normal speech. Toes are down- going bilaterally. Gait is normal without ataxia. PSYCHIATRIC: Cooperative. Good eye contact. Appropriate mood and affect. *DC/Admit/Observation/Transfer Diagnosis at time of Disposition: No complaints - Discharge Dispostion Condition at time of disposition: Fair Decision to Admit order: No - Referrals Referrals: Bayron Gibbs MD [Staff Physician] - - Patient Instructions Additional Instructions: Return to the Er for any concerns - Post Discharge Activity Progress Note - Progress Note Progress Note: 0411hrs: Spoke to Esperanza [employer]. Informed pt's B/P has been normal since arriving to the Er. Esperanza states he can return.
[2018-02-11 08:29] VITALS: BMI 28.3
--- NOTE | 2018-02-11 08:31 | HP ---
COWS - Scale Resting Pulse: 0= [place] 80 or Below Sweatin= Chills/Flushing Restless Observation: 3= Extraneous Movement Pupil Size: 2= Moderately Dilated Bone or Joint Aches: 2= Severe Diffuse Aches Runny Nose/ Eye Tearin= Runny Nose/Eyes GI Upset > 30mins: 3= Vomiting/Diarrhea Tremor Observation: 2= Slight Tremor Visible Yawning Observation: 2= >3x During Session Anxiety or Irritability: 2=Irritable/Anxious Goose Flesh Skin: 0=Smooth Skin COWS Score: 19 CIWA Score - CIWA Score Nausea/Vomitin Muscle Tremors: 3 Anxiety: 3 Agitation: 3 Paroxysmal Sweats: 2 Orientation: 0-Oriented Tacttile Disturbances: 2-Mild Itch/Numbness/Burn Auditory Disturbances: 2-Mild Harshness/Frighten Visual Disturbances: 1-Very Mild Sensitivity Headache: 2-Mild CIWA-Ar Total Score: 21 Admission ROS [facility] - HPI Chief Complaint: i need help to stop using heroin,alcohol,cocaine,pacp medically clear from [facility] er to retuern to [facility] for detox Allergies/Adverse Reactions: Allergies Allergy/AdvReac Type Severity Reaction Status Date / Time No Known Allergies Allergy Verified 02/11/18 02:57 History of Present Illness: this 57 years old male with heroin,alcohol,cocaine,pcp dependence,seeking detox, withdrawal symptom,last detox [facility] 01/10/18 to 01/15/18 htn non compliance did not take any medications since 01/15/18 nicotine dependence no significant period of sobriety coughing for 5 days Exam Limitations: No Limitations - Ebola screening Have you traveled outside of the country in the last 21 days: No - Review of Systems Constitutional: Chills, Loss of Appetite, Malaise, Night Sweats, Changes in sleep, Weakness, Unintentional Wgt. Loss EENT: reports: Tearing, Nose Congestion Respiratory: reports: No Symptoms reported Cardiac: reports: No Symptoms Reported GI: reports: Diarrhea, Nausea, Vomiting, Abdominal cramping : reports: No Symptoms Reported Musculoskeletal: reports: Back Pain, Joint Pain, Muscle Pain, Joint Stiffness Integumentary: reports: Dryness Neuro: reports: No Symptoms reported, Tremors Endocrine: reports: No Symptoms Reported Hematology: reports: No Symptoms Reported Psychiatric: reports: No Sypmtoms Reported, Judgement Intact, Mood/Affect Appropiate, Orientated x3 Patient History - Patient Medical History Hx Anemia: No Hx Asthma: No Hx Chronic Obstructive Pulmonary Disease (COPD): Yes (Not on medication) Hx Cancer: No Hx Cardiac Disorders: No Hx Congestive Heart Failure: No Hx Hypertension: Yes (Not on medication) Hx Hypercholesterolemia: No Hx Pacemaker: No HX Cerebrovascular Accident: No Hx Seizures: No Hx Dementia: No Hx Diabetes: No Hx Gastrointestinal Disorders: No Hx Liver Disease: No Hx Genitourinary Disorders: No Hx Sexually Transmitted Disorders: No Hx Renal Disease (ESRD): No Hx Thyroid Disease: No Hx Human Immunodeficiency Virus (HIV): No (2016 last negative) Hx Hepatitis C: No Hx Depression: No Hx Suicide Attempt: No Hx Bipolar Disorder: No Hx Schizophrenia: No Other Medical History: no suicidal,no homicidal - Patient Surgical History Past Surgical History: Yes Hx Orthopedic Surgery: Yes (R HAND repair extensor tendon at [facility] in [facility]) Anesthesia Reaction: No - PPD History Previous Implant?: Yes Documented Results: Negative w/proof Implanted On Prior [facility] Admission?: Yes Date: 01/12/18 Results: 0 mm PPD to be Administered?: No - Smoking Cessation Smoking history: Current some day smoker Have you smoked in the past 12 months: Yes Aproximately how many cigarettes per day: 10 Cigars Per Day: 0 Hx Chewing Tobacco Use: No Initiated information on smoking cessation: No 'Breaking Loose' booklet given: 02/11/18 - Substance & Tx. History Hx Alcohol Use: Yes Hx Substance Use: Yes Substance Use Type: Alcohol, Cocaine, Heroin Hx Substance Use Treatment: Yes ([facility] 01/10/18 to 01/15/18) - Substances Abused Heroin Route: Inhalation Frequency: Daily Amount used: 5 bags Age of first use: 30 Date of Last Use: 02/11/18 Alcohol Route: Oral Frequency: Daily Amount used: 1 pint of vodka/6 packs of 12 ozs of beer Age of first use: 15 Date of Last Use: 02/11/18 Cocaine Route: Smoking Frequency: 1-2 times per week Amount used: 50$ Age of first use: 30 Date of Last Use: 02/11/18 PCP Route: Smoking Frequency: 1-2 times per week Amount used: 20$ Age of first use: 40 Date of Last Use: 02/10/18 Family Disease History - Family Disease History Family History: Denies Family Disease History: Other: Mother (htn) Admission Physical Exam [facility] - Vital Signs Vital Signs: Vital Signs - 24 hr 02/11/18 02:32 Temperature 99.8 F H Pulse Rate 79 Respiratory 19 Rate Blood Pressure 148/79 O2 Sat by Pulse 99 Oximetry (%) - Physical General Appearance: Yes: Moderate Distress, Tremorous, Irritable, Sweating, Anxious HEENTM: Yes: Normal ENT Inspection, LESLIE, Pharynx Normal Respiratory: Yes: Lungs Clear, Normal Breath Sounds, No Respiratory Distress Neck: Yes: Within Normal Limits, Supple, Trachea in good position Breast: Yes: Within Normal Limits Cardiology: Yes: Within Normal Limits, Regular Rhythm, Regular Rate, S1, S2 Abdominal: Yes: Within Normal Limits, Normal Bowel Sounds, Non Tender, Flat, Soft Genitourinary: Yes: Within Normal Limits Back: Yes: Normal Inspection, Muscle Spasm Musculoskeletal: Yes: full range of Motion, Back pain, Muscle Pain Extremities: Yes: Tremors, Other (scar in right hand unable to do extension of right thumb old injury to tendon of right thumb) Neurological: Yes: Within Normal Limits, heavy equipment sales associate II-XII NML intact, Fully Oriented, Alert Integumentary: Yes: Dry Lymphatic: Yes: Within Normal Limits - Diagnostic (1) Opioid dependence with withdrawal Current Visit: No Status: Acute (2) Alcohol dependence with uncomplicated withdrawal Current Visit: No Status: Acute (3) Cocaine abuse Current Visit: No Status: Acute (4) Nicotine dependence Current Visit: No Status: Acute Qualifiers: Nicotine product type: cigarettes Substance use status: in withdrawal Qualified Code(s): F17.213 - Nicotine dependence, cigarettes, with withdrawal (5) PCP (phencyclidine) abuse Current Visit: No Status: Acute (6) COPD (chronic obstructive pulmonary disease) Current Visit: No Status: Chronic Qualifiers: Chronic bronchitis type: unspecified (7) HTN (hypertension) Current Visit: No Status: Chronic Qualifiers: Hypertension type: essential hypertension Qualified Code(s): I10 - Essential (primary) hypertension (8) Weight loss Current Visit: Yes Status: Acute Cleared for Admission S - Detox or Rehab S Level of Care: Medically Managed Detox Regimen/Protocol: Methadone/Librium [facility] Breath Alcohol Content Breath Alcohol Content: 0.177
[2018-02-11] MEDS ORDERED: MAG HYDROX/AL HYDROX/SIMETH 30 ML UNIT-DOSE CUP PO PRN (08:48)
[2018-02-11] MEDS ORDERED: MAGNESIUM CITRATE 300 ML BOTTLE PO PRN (08:48)
[2018-02-11] MEDS ORDERED: LOPERAMIDE HCL 2 MG CAPSULE PO PRN (08:48)
[2018-02-11] MEDS ORDERED: METHADONE HCL 10 MG TABLET (FOR DETOX USE ONLY) PO ONE ×2 (08:48→23:00)
[2018-02-11] MEDS ORDERED: IBUPROFEN 400 MG TABLET (FP) PO PRN (08:48)
[2018-02-11] MEDS ORDERED: P-EPHED 60MG/TRIPROLIDI 2.5MG TABLET PO PRN (08:48)
[2018-02-11] MEDS ORDERED: MENTHOL/PHENOL 1 EACH UD MM PRN (08:48)
[2018-02-11] MEDS ORDERED: chlordiazePOXIDE HCL 25 MG CAPSULE PO PRN (08:48)
[2018-02-11] MEDS ORDERED: guaiFENesin/D-METHORPHAN HB 10 ML UNIT-DOSE CUPS PO PRN (08:48)
[2018-02-11] MEDS ORDERED: MAGNESIUM HYDROX 2400MG/30ML ORAL SUSPENSION 30 ML CUP PO PRN (08:48)
[2018-02-11] MEDS: HYDROCHLOROTHIAZIDE 25 MG TABLET (FP) PO SCH (09:55)
[2018-02-11] MEDS: cloNIDine HCL 0.1 MG TABLET PO SCH ×2 (09:55→22:50)
[2018-02-11] MEDS: amLODIPine BESYLATE 10 MG TABLET (FP) PO SCH (09:55)
[2018-02-11] MEDS: LISINOPRIL 10 MG TABLET (FP) PO SCH ×2 (09:55→22:50)
[2018-02-11] MEDS: PRENATAL VITAMINS W/ FOLIC ACID TABLET (FP) PO SCH (09:56)
[2018-02-11] MEDS: chlordiazePOXIDE HCL 25 MG CAPSULE PO SCH ×2 (17:32→22:50)
[2018-02-11] MEDS ORDERED: MELATONIN 5 MG TABLETS PO PRN (22:00)
[2018-02-11] MEDS: THIAMINE HCL 100 MG TABLET (FP) PO SCH (22:50)
[2018-02-12] MEDS: chlordiazePOXIDE HCL 25 MG CAPSULE PO SCH ×4 (05:22→22:22)
[2018-02-12 09:33] LABS: HEMATOCRIT 39.6 % (35.4-49); HEMOGLOBIN 13.1 GM/dL (11.7-16.9); MCH 31.3 pg (25.7-33.7); MCHC 33.1 g/dl (32.0-35.9); MEAN CELL VOLUME 94.7 fl (80-96); MEAN PLT VOLUME 8.2 fl (7.5-11.1); PLATELET COUNT 218 K/MM3 (134-434); RBC 4.18 M/mm3 (4.00-5.60); RDW 14.2 % (11.9-15.9); WHITE BLOOD COUNT 6.8 K/mm3 (4.0-10.0)
[2018-02-12 09:54] LABS: URINE APPEARANCE CLEAR; URINE BILIRUBIN NEGATIVE (<2.0 mg/dL); URINE COLOR LTYELLOW; URINE GLUCOSE (UA) NEGATIVE (NEGATIVE); URINE KETONE NEGATIVE (NEGATIVE); URINE LEUK ESTERASE NEGATIVE (NEGATIVE); URINE NITRITE NEGATIVE (NEGATIVE); URINE PROTEIN NEGATIVE (NEGATIVE); URINE UROBILINOGEN NEGATIVE mg/dL (0.2-1.0)
[2018-02-12 09:57] LABS: ALBUMIN 3.4 g/dl (3.4-5.0); ANION GAP 4 (8-16); BILIRUBIN,TOTAL 1.1 mg/dL (0.2-1.0); BLOOD UREA NITROGEN 12 mg/dL (7-18); CALCIUM 9.2 mg/dL (8.5-10.1); CHLORIDE 103 mmol/L (98-107); CO2 33 mmol/L (21-32); GLUCOSE,RANDOM 71 mg/dL (74-106); POTASSIUM 4.1 mmol/L (3.5-5.1); SGOT/AST 20 U/L (15-37); SGPT/ALT 23 U/L (12-78); SODIUM 140 mmol/L (136-145); TOT PROT 6.8 g/dl (6.4-8.2)
[2018-02-12 09:58] LABS: ALK PHOS 104 U/L (45-117)
[2018-02-12] MEDS ORDERED: METHADONE HCL 10 MG TABLET (FOR DETOX USE ONLY) PO SCH (10:00)
--- NOTE | 2018-02-12 10:23 | PN ---
[facility] CIWA - CIWA Score Nausea/Vomitin-Mild Nausea/No Vomiting Muscle Tremors: 4-Moderate,w/Arms Extend Anxiety: 4-Mod. Anxious/Guarded Agitation: 4-Moderately Restless Paroxysmal Sweats: 1-Minimal Palms Moist Orientation: 1-Uncertain about Date Tacttile Disturbances: 2-Mild Itch/Numbness/Burn Auditory Disturbances: 0-None Visual Disturbances: 0-None Headache: 1-Very Mild CIWA-Ar Total Score: 18 BHS COWS - Scale Resting Pulse: 0= [place] 80 or Below Sweatin= Chills/Flushing Restless Observation: 1= Difficult to Sit Still Pupil Size: 1= Pupils >than Normal Bone or Joint Aches: 2= Severe Diffuse Aches Runny Nose/ Eye Tearin= Runny Nose/Eyes GI Upset > 30mins: 2= Nausea/Diarrhea Tremor Observation of Outstretched Hands: 2= Slight Tremor Visible Yawning Observation: 2= >3x During Session Anxiety or Irritability: 2=Irritable/Anxious Goose Flesh Skin: 3=Piloerection COWS Score: 18 S Progress Note (SOAP) Subjective: muscle aches sweat tremor restlessness anxiety irritable Objective: 02/12/18 10:25 Vital Signs Temperature 97.7 F 02/12/18 06:00 Pulse Rate 67 02/12/18 06:00 Respiratory Rate 18 02/12/18 06:00 Blood Pressure 125/80 02/12/18 06:00 O2 Sat by Pulse Oximetry (%) 99 02/11/18 02:32 Laboratory Last Values WBC 6.8 K/mm3 (4.0-10.0) 02/12/18 07:00 RBC 4.18 M/mm3 (4.00-5.60) 02/12/18 07:00 Hgb 13.1 GM/dL (11.7-16.9) 02/12/18 07:00 Hct 39.6 % (35.4-49) 02/12/18 07:00 MCV 94.7 fl (80-96) 02/12/18 07:00 MCH 31.3 pg (25.7-33.7) 02/12/18 07:00 MCHC 33.1 g/dl (32.0-35.9) 02/12/18 07:00 RDW 14.2 % (11.9-15.9) 02/12/18 07:00 Plt Count 218 K/MM3 (134-434) 02/12/18 07:00 MPV 8.2 fl (7.5-11.1) 02/12/18 07:00 Sodium 140 mmol/L (136-145) 02/12/18 07:00 Potassium 4.1 mmol/L (3.5-5.1) 02/12/18 07:00 Chloride 103 mmol/L (98-107) 02/12/18 07:00 Carbon Dioxide 33 mmol/L (21-32) H 02/12/18 07:00 Anion Gap 4 (8-16) L 02/12/18 07:00 BUN 12 mg/dL (7-18) 02/12/18 07:00 Creatinine 1.0 mg/dL (0.7-1.3) 02/12/18 07:00 Creat Clearance w eGFR > 60 (>60) 02/12/18 07:00 Random Glucose 71 mg/dL (74-106) L D 02/12/18 07:00 Calcium 9.2 mg/dL (8.5-10.1) 02/12/18 07:00 Total Bilirubin 1.1 mg/dL (0.2-1.0) H 02/12/18 07:00 AST 20 U/L (15-37) 02/12/18 07:00 ALT 23 U/L (12-78) 02/12/18 07:00 Alkaline Phosphatase 104 U/L (45-117) 02/12/18 07:00 Total Protein 6.8 g/dl (6.4-8.2) 02/12/18 07:00 Albumin 3.4 g/dl (3.4-5.0) 02/12/18 07:00 Urine Color Ltyellow 02/12/18 07:00 Urine Appearance Clear 02/12/18 07:00 Urine pH 6.0 (5.0-8.0) 02/12/18 07:00 Ur Specific [place] 1.016 (1.001-1.035) 02/12/18 07:00 Urine Protein Negative (NEGATIVE) 02/12/18 07:00 Urine Glucose (UA) Negative (NEGATIVE) 02/12/18 07:00 Urine Ketones Negative (NEGATIVE) 02/12/18 07:00 Urine Blood Negative (NEGATIVE) 02/12/18 07:00 Urine Nitrite Negative (NEGATIVE) 02/12/18 07:00 Urine Bilirubin Negative (<2.0 mg/dL) 02/12/18 07:00 Urine Urobilinogen Negative mg/dL (0.2-1.0) 02/12/18 07:00 Ur Leukocyte Esterase Negative (NEGATIVE) 02/12/18 07:00 RPR Titer Nonreactive (NONREACTIVE) 02/12/18 07:00 lab noted Assessment: 02/12/18 10:26 withdrawal sx Plan: continue detox
--- NOTE | 2018-02-12 10:45 | EKG ---
Test Reason : Blood Pressure : / mmHG Vent. Rate : 067 BPM Atrial Rate : 067 BPM P-R Int : 116 ms QRS Dur : 088 ms QT Int : 410 ms P-R-T Axes : 081 031 051 degrees QTc Int : 433 ms NORMAL SINUS RHYTHM NORMAL ECG WHEN COMPARED WITH ECG OF 10-JAN-2018 01:56, BORDERLINE CRITERIA FOR LATERAL INFARCT ARE NO LONGER PRESENT NONSPECIFIC T WAVE ABNORMALITY NO LONGER EVIDENT IN LATERAL LEADS Confirmed by JANNA MALDONADO MD ([id number]) on 02/12/2018 10:45:32 AM Referred By: Confirmed By:JANNA MALDONADO MD
[2018-02-12] MEDS: PRENATAL VITAMINS W/ FOLIC ACID TABLET (FP) PO SCH (10:49)
[2018-02-12] MEDS: amLODIPine BESYLATE 10 MG TABLET (FP) PO SCH (10:49)
[2018-02-12] MEDS: HYDROCHLOROTHIAZIDE 25 MG TABLET (FP) PO SCH (10:49)
[2018-02-12] MEDS: cloNIDine HCL 0.1 MG TABLET PO SCH ×2 (10:49→22:22)
[2018-02-12] MEDS: LISINOPRIL 10 MG TABLET (FP) PO SCH ×2 (10:50→22:22)
[2018-02-12] MEDS: THIAMINE HCL 100 MG TABLET (FP) PO SCH (22:22)
[2018-02-12] MEDS: ACETAMINOPHEN 325 MG TABLET (FP) PO PRN (23:47)
[2018-02-13] MEDS: chlordiazePOXIDE HCL 25 MG CAPSULE PO SCH ×2 (06:19→10:17)
--- NOTE | 2018-02-13 10:09 | PN ---
[facility] CIWA - CIWA Score Nausea/Vomitin-No Nausea/No Vomiting Muscle Tremors: 4-Moderate,w/Arms Extend Anxiety: 3 Agitation: 3 Paroxysmal Sweats: 1-Minimal Palms Moist Orientation: 0-Oriented Tacttile Disturbances: 1-Very Mild Itch/Numbness Auditory Disturbances: 0-None Visual Disturbances: 0-None Headache: 2-Mild CIWA-Ar Total Score: 14 BHS COWS - Scale Resting Pulse: 0= [place] 80 or Below Sweatin= Chills/Flushing Restless Observation: 1= Difficult to Sit Still Pupil Size: 0= Normal to Room Light Bone or Joint Aches: 2= Severe Diffuse Aches Runny Nose/ Eye Tearin= Runny Nose/Eyes GI Upset > 30mins: 2= Nausea/Diarrhea Tremor Observation of Outstretched Hands: 2= Slight Tremor Visible Yawning Observation: 2= >3x During Session Anxiety or Irritability: 2=Irritable/Anxious Goose Flesh Skin: 0=Smooth Skin COWS Score: 14 [facility] Progress Note (SOAP) Subjective: sweat tremor restlessness muscle aches trouble sleep at night Objective: 02/13/18 10:08 Vital Signs Temperature 97.9 F 02/13/18 09:21 Pulse Rate 71 02/13/18 09:21 Respiratory Rate 18 02/13/18 09:21 Blood Pressure 124/77 02/13/18 09:21 O2 Sat by Pulse Oximetry (%) 99 02/11/18 02:32 Laboratory Last Values WBC 6.8 K/mm3 (4.0-10.0) 02/12/18 07:00 RBC 4.18 M/mm3 (4.00-5.60) 02/12/18 07:00 Hgb 13.1 GM/dL (11.7-16.9) 02/12/18 07:00 Hct 39.6 % (35.4-49) 02/12/18 07:00 MCV 94.7 fl (80-96) 02/12/18 07:00 MCH 31.3 pg (25.7-33.7) 02/12/18 07:00 MCHC 33.1 g/dl (32.0-35.9) 02/12/18 07:00 RDW 14.2 % (11.9-15.9) 02/12/18 07:00 Plt Count 218 K/MM3 (134-434) 02/12/18 07:00 MPV 8.2 fl (7.5-11.1) 02/12/18 07:00 Sodium 140 mmol/L (136-145) 02/12/18 07:00 Potassium 4.1 mmol/L (3.5-5.1) 02/12/18 07:00 Chloride 103 mmol/L (98-107) 02/12/18 07:00 Carbon Dioxide 33 mmol/L (21-32) H 02/12/18 07:00 Anion Gap 4 (8-16) L 02/12/18 07:00 BUN 12 mg/dL (7-18) 02/12/18 07:00 Creatinine 1.0 mg/dL (0.7-1.3) 02/12/18 07:00 Creat Clearance w eGFR > 60 (>60) 02/12/18 07:00 Random Glucose 71 mg/dL (74-106) L D 02/12/18 07:00 Calcium 9.2 mg/dL (8.5-10.1) 02/12/18 07:00 Total Bilirubin 1.1 mg/dL (0.2-1.0) H 02/12/18 07:00 AST 20 U/L (15-37) 02/12/18 07:00 ALT 23 U/L (12-78) 02/12/18 07:00 Alkaline Phosphatase 104 U/L (45-117) 02/12/18 07:00 Total Protein 6.8 g/dl (6.4-8.2) 02/12/18 07:00 Albumin 3.4 g/dl (3.4-5.0) 02/12/18 07:00 Urine Color Ltyellow 02/12/18 07:00 Urine Appearance Clear 02/12/18 07:00 Urine pH 6.0 (5.0-8.0) 02/12/18 07:00 Ur Specific [place] 1.016 (1.001-1.035) 02/12/18 07:00 Urine Protein Negative (NEGATIVE) 02/12/18 07:00 Urine Glucose (UA) Negative (NEGATIVE) 02/12/18 07:00 Urine Ketones Negative (NEGATIVE) 02/12/18 07:00 Urine Blood Negative (NEGATIVE) 02/12/18 07:00 Urine Nitrite Negative (NEGATIVE) 02/12/18 07:00 Urine Bilirubin Negative (<2.0 mg/dL) 02/12/18 07:00 Urine Urobilinogen Negative mg/dL (0.2-1.0) 02/12/18 07:00 Ur Leukocyte Esterase Negative (NEGATIVE) 02/12/18 07:00 RPR Titer Nonreactive (NONREACTIVE) 02/12/18 07:00 HIV 1&2 Antibody Screen Negative 02/12/18 07:00 HIV P24 Antigen Negative 02/12/18 07:00 lab noted Assessment: 02/13/18 10:09 withdrawal sx Plan: continue detox
[2018-02-13] MEDS: PRENATAL VITAMINS W/ FOLIC ACID TABLET (FP) PO SCH (10:16)
[2018-02-13] MEDS: LISINOPRIL 10 MG TABLET (FP) PO SCH ×2 (10:16→22:18)
[2018-02-13] MEDS: cloNIDine HCL 0.1 MG TABLET PO SCH ×2 (10:16→22:18)
[2018-02-13] MEDS: HYDROCHLOROTHIAZIDE 25 MG TABLET (FP) PO SCH (10:16)
[2018-02-13] MEDS: amLODIPine BESYLATE 10 MG TABLET (FP) PO SCH (10:17)
[2018-02-13] MEDS: METHADONE HCL 5 MG TABLET (FOR DETOX USE ONLY) PO SCH (10:17)
[2018-02-13] MEDS: chlordiazePOXIDE 5 MG CAPSULE PO SCH ×2 (17:34→22:17)
[2018-02-13] MEDS: ACETAMINOPHEN 325 MG TABLET (FP) PO PRN (18:51)
[2018-02-13] MEDS: THIAMINE HCL 100 MG TABLET (FP) PO SCH (22:17)
[2018-02-14] MEDS: chlordiazePOXIDE 5 MG CAPSULE PO SCH ×2 (06:07→10:31)
[2018-02-14] MEDS: amLODIPine BESYLATE 10 MG TABLET (FP) PO SCH (10:31)
[2018-02-14] MEDS: METHADONE HCL 5 MG TABLET (FOR DETOX USE ONLY) PO SCH (10:32)
[2018-02-14] MEDS: cloNIDine HCL 0.1 MG TABLET PO SCH ×2 (10:32→22:18)
[2018-02-14] MEDS: LISINOPRIL 10 MG TABLET (FP) PO SCH ×2 (10:32→22:18)
[2018-02-14] MEDS: HYDROCHLOROTHIAZIDE 25 MG TABLET (FP) PO SCH (10:32)
[2018-02-14] MEDS: PRENATAL VITAMINS W/ FOLIC ACID TABLET (FP) PO SCH (11:11)
--- NOTE | 2018-02-14 11:26 | PN ---
[facility] Progress Note (SOAP) Subjective: muscle aches trouble sleep at night sweat tremor restlessness stuffy nose Objective: 02/14/18 11:25 Vital Signs Temperature 97.5 F L 02/14/18 07:32 Pulse Rate 70 02/14/18 07:32 Respiratory Rate 18 02/14/18 07:32 Blood Pressure 127/75 02/14/18 07:32 O2 Sat by Pulse Oximetry (%) 99 02/11/18 02:32 Laboratory Last Values WBC 6.8 K/mm3 (4.0-10.0) 02/12/18 07:00 RBC 4.18 M/mm3 (4.00-5.60) 02/12/18 07:00 Hgb 13.1 GM/dL (11.7-16.9) 02/12/18 07:00 Hct 39.6 % (35.4-49) 02/12/18 07:00 MCV 94.7 fl (80-96) 02/12/18 07:00 MCH 31.3 pg (25.7-33.7) 02/12/18 07:00 MCHC 33.1 g/dl (32.0-35.9) 02/12/18 07:00 RDW 14.2 % (11.9-15.9) 02/12/18 07:00 Plt Count 218 K/MM3 (134-434) 02/12/18 07:00 MPV 8.2 fl (7.5-11.1) 02/12/18 07:00 Sodium 140 mmol/L (136-145) 02/12/18 07:00 Potassium 4.1 mmol/L (3.5-5.1) 02/12/18 07:00 Chloride 103 mmol/L (98-107) 02/12/18 07:00 Carbon Dioxide 33 mmol/L (21-32) H 02/12/18 07:00 Anion Gap 4 (8-16) L 02/12/18 07:00 BUN 12 mg/dL (7-18) 02/12/18 07:00 Creatinine 1.0 mg/dL (0.7-1.3) 02/12/18 07:00 Creat Clearance w eGFR > 60 (>60) 02/12/18 07:00 Random Glucose 71 mg/dL (74-106) L D 02/12/18 07:00 Calcium 9.2 mg/dL (8.5-10.1) 02/12/18 07:00 Total Bilirubin 1.1 mg/dL (0.2-1.0) H 02/12/18 07:00 AST 20 U/L (15-37) 02/12/18 07:00 ALT 23 U/L (12-78) 02/12/18 07:00 Alkaline Phosphatase 104 U/L (45-117) 02/12/18 07:00 Total Protein 6.8 g/dl (6.4-8.2) 02/12/18 07:00 Albumin 3.4 g/dl (3.4-5.0) 02/12/18 07:00 Urine Color Ltyellow 02/12/18 07:00 Urine Appearance Clear 02/12/18 07:00 Urine pH 6.0 (5.0-8.0) 02/12/18 07:00 Ur Specific [place] 1.016 (1.001-1.035) 02/12/18 07:00 Urine Protein Negative (NEGATIVE) 02/12/18 07:00 Urine Glucose (UA) Negative (NEGATIVE) 02/12/18 07:00 Urine Ketones Negative (NEGATIVE) 02/12/18 07:00 Urine Blood Negative (NEGATIVE) 02/12/18 07:00 Urine Nitrite Negative (NEGATIVE) 02/12/18 07:00 Urine Bilirubin Negative (<2.0 mg/dL) 02/12/18 07:00 Urine Urobilinogen Negative mg/dL (0.2-1.0) 02/12/18 07:00 Ur Leukocyte Esterase Negative (NEGATIVE) 02/12/18 07:00 RPR Titer Nonreactive (NONREACTIVE) 02/12/18 07:00 HIV 1&2 Antibody Screen Negative 02/12/18 07:00 HIV P24 Antigen Negative 02/12/18 07:00 lab noted Assessment: 02/14/18 11:26 withdrawal sx Plan: continue detox
[2018-02-14] MEDS: chlordiazePOXIDE HCL 10 MG CAPSULE PO SCH ×2 (17:50→22:18)
[2018-02-14] MEDS: THIAMINE HCL 100 MG TABLET (FP) PO SCH (22:18)
[2018-02-15] MEDS: chlordiazePOXIDE HCL 10 MG CAPSULE PO SCH ×2 (06:14→10:51)
--- NOTE | 2018-02-15 09:08 | PN ---
S Progress Note (SOAP) Subjective: feeling better no tremor no gi distress no body ache less sweat sleep better at night Objective: 02/15/18 09:07 Vital Signs Temperature 97.3 F L 02/15/18 07:33 Pulse Rate 66 02/15/18 07:33 Respiratory Rate 18 02/15/18 07:33 Blood Pressure 103/64 02/15/18 07:33 O2 Sat by Pulse Oximetry (%) 99 02/11/18 02:32 Laboratory Last Values WBC 6.8 K/mm3 (4.0-10.0) 02/12/18 07:00 RBC 4.18 M/mm3 (4.00-5.60) 02/12/18 07:00 Hgb 13.1 GM/dL (11.7-16.9) 02/12/18 07:00 Hct 39.6 % (35.4-49) 02/12/18 07:00 MCV 94.7 fl (80-96) 02/12/18 07:00 MCH 31.3 pg (25.7-33.7) 02/12/18 07:00 MCHC 33.1 g/dl (32.0-35.9) 02/12/18 07:00 RDW 14.2 % (11.9-15.9) 02/12/18 07:00 Plt Count 218 K/MM3 (134-434) 02/12/18 07:00 MPV 8.2 fl (7.5-11.1) 02/12/18 07:00 Sodium 140 mmol/L (136-145) 02/12/18 07:00 Potassium 4.1 mmol/L (3.5-5.1) 02/12/18 07:00 Chloride 103 mmol/L (98-107) 02/12/18 07:00 Carbon Dioxide 33 mmol/L (21-32) H 02/12/18 07:00 Anion Gap 4 (8-16) L 02/12/18 07:00 BUN 12 mg/dL (7-18) 02/12/18 07:00 Creatinine 1.0 mg/dL (0.7-1.3) 02/12/18 07:00 Creat Clearance w eGFR > 60 (>60) 02/12/18 07:00 Random Glucose 71 mg/dL (74-106) L D 02/12/18 07:00 Calcium 9.2 mg/dL (8.5-10.1) 02/12/18 07:00 Total Bilirubin 1.1 mg/dL (0.2-1.0) H 02/12/18 07:00 AST 20 U/L (15-37) 02/12/18 07:00 ALT 23 U/L (12-78) 02/12/18 07:00 Alkaline Phosphatase 104 U/L (45-117) 02/12/18 07:00 Total Protein 6.8 g/dl (6.4-8.2) 02/12/18 07:00 Albumin 3.4 g/dl (3.4-5.0) 02/12/18 07:00 Urine Color Ltyellow 02/12/18 07:00 Urine Appearance Clear 02/12/18 07:00 Urine pH 6.0 (5.0-8.0) 02/12/18 07:00 Ur Specific [place] 1.016 (1.001-1.035) 02/12/18 07:00 Urine Protein Negative (NEGATIVE) 02/12/18 07:00 Urine Glucose (UA) Negative (NEGATIVE) 02/12/18 07:00 Urine Ketones Negative (NEGATIVE) 02/12/18 07:00 Urine Blood Negative (NEGATIVE) 02/12/18 07:00 Urine Nitrite Negative (NEGATIVE) 02/12/18 07:00 Urine Bilirubin Negative (<2.0 mg/dL) 02/12/18 07:00 Urine Urobilinogen Negative mg/dL (0.2-1.0) 02/12/18 07:00 Ur Leukocyte Esterase Negative (NEGATIVE) 02/12/18 07:00 RPR Titer Nonreactive (NONREACTIVE) 02/12/18 07:00 HIV 1&2 Antibody Screen Negative 02/12/18 07:00 HIV P24 Antigen Negative 02/12/18 07:00 lab noted Assessment: 02/15/18 09:08 mild withdrawal sx Plan: medically supervised detox
[2018-02-15] MEDS ORDERED: METHADONE HCL 10 MG TABLET (FOR DETOX USE ONLY) PO SCH (10:00)
[2018-02-15] MEDS: cloNIDine HCL 0.1 MG TABLET PO SCH ×2 (10:50→22:09)
[2018-02-15] MEDS: LISINOPRIL 10 MG TABLET (FP) PO SCH ×2 (10:50→22:09)
[2018-02-15] MEDS: PRENATAL VITAMINS W/ FOLIC ACID TABLET (FP) PO SCH (10:50)
[2018-02-15] MEDS: amLODIPine BESYLATE 10 MG TABLET (FP) PO SCH (10:50)
[2018-02-15] MEDS: HYDROCHLOROTHIAZIDE 25 MG TABLET (FP) PO SCH (10:51)
--- NOTE | 2018-02-15 11:54 | CONSULT ---
[facility] Psychiatric Consult - Data Date of interview: 02/15/18 Admission source: [facility] Identifying data: This is 57 years old male with heroin,alcohol,cocaine, PCP dependence,seeking detox,withdrawal symptom,last detox [facility] 01/10/18 to . As per chart patient is not comliant with psychiatric medications and treatment plan. Patient refusing psychiatric evaluation. no significant period of sobriety. coughing for 5 days Substance Abuse History: - Smoking Cessation. Smoking history: Current some day smoker. Have you smoked in the past 12 months: Yes. Aproximately how many cigarettes per day: 10. Cigars Per Day: 0. Hx Chewing Tobacco Use: No. Initiated information on smoking cessation: No. 'Breaking Loose' booklet given : 02/11/18. - Substance & Tx. History. Hx Alcohol Use: Yes. Hx Substance Use : Yes. Substance Use Type: Alcohol, Cocaine, Heroin. Hx Substance Use Treatment: Yes ([facility] 01/10/18 to 01/15/18). - Substances Abused. Heroin. Route: Inhalation. Frequency: Daily. Amount used: 5 bags. Age of first use: 30. Date of Last Use: 02/11/18. Alcohol. Route: Oral. Frequency: Daily. Amount used: 1 pint of vodka/6 packs of 12 ozs of beer. Age of first use: 15. Date of Last Use: 02/11/18. Cocaine. Route: Smoking. Frequency: 1-2 times per week. Amount used: 50$. Age of first use: 30. Date of Last Use: . PCP. Route: Smoking. Frequency: 1-2 times per week. Amount used: 20$ . Age of first use: 40. Date of Last Use: 02/10/18 Mental Status Exam - Mental Status Exam Additional Comments: Patient refusing MSE Psychiatric Findings - Problem List ([place] 1, 2,3) (1) Alcohol dependence with uncomplicated withdrawal Current Visit: No Status: Acute (2) Alcohol-induced mood disorder Current Visit: No Status: Acute (3) Chronic sinusitis, unspecified Current Visit: No Status: Acute (4) Cocaine abuse Current Visit: No Status: Acute (5) Nicotine dependence Current Visit: No Status: Acute Qualifiers: Nicotine product type: cigarettes Substance use status: in withdrawal Qualified Code(s): F17.213 - Nicotine dependence, cigarettes, with withdrawal (6) Opioid dependence with withdrawal Current Visit: No Status: Acute (7) PCP (phencyclidine) abuse Current Visit: No Status: Acute (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
[2018-02-15] MEDS: THIAMINE HCL 100 MG TABLET (FP) PO SCH (22:09)
[2018-02-16] MEDS ORDERED: METHADONE HCL 5 MG TABLET (FOR DETOX USE ONLY) PO SCH (06:00)
[2018-02-16 09:37] VITALS: BP 142/85; PULSE 75; TEMP 99
[2018-02-16] MEDS: LISINOPRIL 10 MG TABLET (FP) PO SCH (09:46)
[2018-02-16] MEDS: HYDROCHLOROTHIAZIDE 25 MG TABLET (FP) PO SCH (09:46)
[2018-02-16] MEDS: cloNIDine HCL 0.1 MG TABLET PO SCH (09:46)
[2018-02-16] MEDS: PRENATAL VITAMINS W/ FOLIC ACID TABLET (FP) PO SCH (09:46)
[2018-02-16] MEDS: amLODIPine BESYLATE 10 MG TABLET (FP) PO SCH (09:46)
--- NOTE | 2018-02-16 15:47 | PN ---
[facility] Progress Note (SOAP) Subjective: pt to be discharged today Objective: 02/16/18 15:46 Vital Signs - 24 hr 02/15/18 02/15/18 02/16/18 17:39 22:11 05:57 Temperature 97.9 F 98.1 F 96.5 F L Pulse Rate 72 73 70 Respiratory 18 16 18 Rate Blood Pressure 112/66 118/76 110/58 02/16/18 09:36 Temperature 99 F Pulse Rate 75 Respiratory 20 Rate Blood Pressure 142/85 Breath Alcohol Content Breath Alcohol Content 0.177 Laboratory Tests 02/12/18 02/12/18 02/12/18 07:00 07:00 07:00 WBC 6.8 RBC 4.18 Hgb 13.1 Hct 39.6 MCV 94.7 MCH 31.3 MCHC 33.1 RDW 14.2 Plt Count 218 MPV 8.2 Sodium 140 Potassium 4.1 Chloride 103 Carbon Dioxide 33 H Anion Gap 4 L BUN 12 Creatinine 1.0 Creat Clearance w eGFR > 60 Random Glucose 71 L D Calcium 9.2 Total Bilirubin 1.1 H AST 20 ALT 23 Alkaline Phosphatase 104 Total Protein 6.8 Albumin 3.4 Urine Color Urine Appearance Urine pH Ur Specific [place] Urine Protein Urine Glucose (UA) Urine Ketones Urine Blood Urine Nitrite Urine Bilirubin Urine Urobilinogen Ur Leukocyte Esterase RPR Titer Nonreactive HIV 1&2 Antibody Screen HIV P24 Antigen 02/12/18 02/12/18 07:00 07:00 WBC RBC Hgb Hct MCV MCH MCHC RDW Plt Count MPV Sodium Potassium Chloride Carbon Dioxide Anion Gap BUN Creatinine Creat Clearance w eGFR Random Glucose Calcium Total Bilirubin AST ALT Alkaline Phosphatase Total Protein Albumin Urine Color Ltyellow Urine Appearance Clear Urine pH 6.0 Ur Specific [place] 1.016 Urine Protein Negative Urine Glucose (UA) Negative Urine Ketones Negative Urine Blood Negative Urine Nitrite Negative Urine Bilirubin Negative Urine Urobilinogen Negative Ur Leukocyte Esterase Negative RPR Titer HIV 1&2 Antibody Screen Negative HIV P24 Antigen Negative nl VSS ess nl labs Assessment: 02/16/18 15:47 completed detox Plan: discharge today
--- NOTE | 2018-02-16 15:53 | DS ---
[facility] Detox Discharge Summary Admission Date: 02/11/18 Discharge Date: 02/16/18 - History Present History: Alcohol Dependence, Cocaine Dependence, Opioid Dependence - Physical Exam Results Vital Signs: Vital Signs Temperature 99 F 02/16/18 09:36 Pulse Rate 75 02/16/18 09:36 Respiratory Rate 20 02/16/18 09:36 Blood Pressure 142/85 02/16/18 09:36 O2 Sat by Pulse Oximetry (%) 99 02/11/18 02:32 Pertinent Admission Physical Exam Findings: pt came here to stop using heroin,alcohol,cocaine- successfully completed the detox - Treatment Hospital Course: Detox Protocol Followed, Detoxed Safely, Responded well, Discharged Condition Good, Rehab Referral Accepted - Medication Discharge Medications: Ambulatory Orders Amlodipine Besylate [Norvasc -] 10 mg PO DAILY #14 tablet 02/15/18 Hydrochlorothiazide [Hctz -] 25 mg PO DAILY #14 tablet 02/15/18 Lisinopril [Prinivil] 10 mg PO BID #30 tablet 02/15/18 - AMA Did Patient Leave Against Medical Advice: No
== END 2018-02-16 09:43 | disposition home or self-care (01) | DRG 773 ==
LOC: JER 02:27 → Y6N 06:17
PROVIDERS: ADMIT Surgery; ATTEND Surgery
PROC: HZ2ZZZZ Detoxification Services for Substance Abuse Treatment (ICD-10-PCS; principal; 2018-02-11)
DX: F11.23 Opioid dependence with withdrawal (principal); F10.230 Alcohol dependence with withdrawal, uncomplicated; F14.20 Cocaine dependence, uncomplicated; F17.213 Nicotine dependence, cigarettes, with withdrawal; F16.259 Hallucinogen dependence with hallucinogen-induced psychotic disorder, unspecified; J44.9 Chronic obstructive pulmonary disease, unspecified; J32.9 Chronic sinusitis, unspecified; I10 Essential (primary) hypertension; R63.4 Abnormal weight loss; Z68.28 Body mass index [BMI] 28.0-28.9, adult
CPT/HCPCS: 36415; 71046-TC-FY; 80053; 81003; 85027; 86593; 87389; 93005; 93010; 99281-25; J0735